=== PATIENT | male | born 1950 | race Caucasian/White ===

== ENCOUNTER → 2019-03-11 | Outpatient (CLI) | payer OTHER ==
[~2019-03-11] VITALS: Ht 185.4 cm; Wt 95.3 kg
[~2019-03-11] MED LIST: ADVAIR 250-501 EACH INH; ALPRAZOLAM XR3 MG PO; CARDURA4 MG PO; COZAAR 25 MG TA25 M1 PO; DIOVAN160 MG PO; DULERA 200 MCG/13 GM INH; ELIQUIS5 MG PO; NORVASC 2.5 MG2.5 M1 PO; PROAIR HFA8.5 GM INH; PROTONIX40 M2 PO; SIMVASTATIN20 MG PO; ZOCOR 20 MG TAB20 M1 PO; [UNRECOGNIZED DRUG - OTHER] PO
[2019-03-11 09:27] VITALS: BP 128/82
== END | disposition home or self-care (01) ==
LOC: CATH 09:04
DX: I87.1 Compression of vein (principal); I87.2 Venous insufficiency (chronic) (peripheral); R22.9 Localized swelling, mass and lump, unspecified; I10 Essential (primary) hypertension; E78.00 Pure hypercholesterolemia, unspecified; E78.5 Hyperlipidemia, unspecified; I73.9 Peripheral vascular disease, unspecified; Z98.890 Other specified postprocedural states; Z82.49 Family history of ischemic heart disease and other diseases of the circulatory system; Z86.718 Personal history of other venous thrombosis and embolism; Z85.46 Personal history of malignant neoplasm of prostate; Z79.01 Long term (current) use of anticoagulants; Z79.899 Other long term (current) drug therapy